=== PATIENT | male | born 1950 | race Caucasian/White ===

== ENCOUNTER 2019-01-17 20:30 | Inpatient (IN) | payer OTHER, MEDICAID ==
[~2019-01-17] VITALS: Ht 175.3 cm; Wt 66.3 kg
[2019-01-17 21:52] LABS: BASOPHIL % 0.1 % (0-2); RED CELL DISTRIBUTION WIDTH 13.7 % (11.5-14.5)
[2019-01-17 21:53] LABS: PLATELET COUNT 565 x10^3mcL (130-400)
[2019-01-17 22:04] LABS: CALCIUM 9.8 mg/dL (8.5-10.1); CARBON DIOXIDE 20.4 mmol/L (21-32); CREATININE SERUM 1.3 mg/dL (0.7-1.3); POTASSIUM SERUM 4.2 mmol/L (3.5-5.1)
[2019-01-17 22:09] LABS: BILIRUBIN TOTAL 0.42 mg/dL (0.20-1.00); TOTAL PROTEIN, SERUM 8.2 g/dL (6.4-8.2)
[2019-01-17 22:11] LABS: ALBUMIN 2.9 g/dL (3.4-5.0)
[2019-01-17] MEDS ORDERED: REG5 PO (23:46)
[2019-01-17] MEDS ORDERED: DIFLUCAN200 MG PO (23:46)
[2019-01-17] MEDS ORDERED: BENAZEPRIL HYDR20 M1 PO (23:47)
[2019-01-18] MEDS ORDERED: NEU300 PO (00:23)
[2019-01-18] MEDS ORDERED: GLUCOTROL5 MG PO (00:24)
[2019-01-18] MEDS ORDERED: GOOD SENSE OMEP20 MG PO (00:24)
[2019-01-18] MEDS ORDERED: METFORMIN HCL500 MG PO (00:24)
[2019-01-18] MEDS ORDERED: CRESTOR40 M1 PO (00:25)
[2019-01-18] MEDS ORDERED: TOUJEO MAX300 UNIT/1 (00:26)
[2019-01-18 01:18] VITALS: BP 171/64
[2019-01-18 01:29] LABS: MAGNESIUM 2.4 mg/dL (1.8-2.4); PHOSPHOROUS 2.3 mg/dL (2.5-4.9)
[2019-01-18 01:31] LABS: CHOLESTEROL/HDL RATIO 2.2
[2019-01-18 05:53] LABS: BASOPHIL % 0.1 % (0-2); RED CELL DISTRIBUTION WIDTH 12.9 % (11.5-14.5)
[2019-01-18 06:20] VITALS: BP 92/46
[2019-01-18 06:29] VITALS: BP 97/55
[2019-01-18 06:45] LABS: CALCIUM 9.1 mg/dL (8.5-10.1); CARBON DIOXIDE 23.6 mmol/L (21-32); CREATININE SERUM 1.4 mg/dL (0.7-1.3); POTASSIUM SERUM 4.2 mmol/L (3.5-5.1)
[2019-01-18 07:23] LABS: PLATELET COUNT 526 x10^3mcL (130-400)
[2019-01-18 09:34] VITALS: BP 147/73
[2019-01-18 20:43] VITALS: BP 108/55
[2019-01-19 00:43] LABS: microscopic required? YES; urine erythrocyte 1+ (NEGATIVE)
[2019-01-19 05:28] VITALS: BP 115/58
[2019-01-19 06:25] LABS: BASOPHIL % 0.6 % (0-2); RED CELL DISTRIBUTION WIDTH 13.6 % (11.5-14.5)
[2019-01-19 06:56] LABS: CALCIUM 8.8 mg/dL (8.5-10.1); CARBON DIOXIDE 26.1 mmol/L (21-32); CREATININE SERUM 1.9 mg/dL (0.7-1.3); MAGNESIUM 2.4 mg/dL (1.8-2.4); PHOSPHOROUS 2.8 mg/dL (2.5-4.9); POTASSIUM SERUM 3.5 mmol/L (3.5-5.1)
[2019-01-19 07:21] LABS: PLATELET COUNT 403 x10^3mcL (130-400)
[2019-01-19 09:43] VITALS: BP 134/65
[2019-01-19 13:07] VITALS: BP 151/58
[2019-01-19 17:39] VITALS: BP 120/72
[2019-01-19 22:09] VITALS: BP 97/46
[2019-01-20 05:39] VITALS: BP 100/50
[2019-01-20 06:08] LABS: BASOPHIL % 0.4 % (0-2); PLATELET COUNT 397 x10^3mcL (130-400)
[2019-01-20 06:21] LABS: CALCIUM 8.4 mg/dL (8.5-10.1); CARBON DIOXIDE 26.3 mmol/L (21-32); CREATININE SERUM 2.9 mg/dL (0.7-1.3); POTASSIUM SERUM 3.5 mmol/L (3.5-5.1)
[2019-01-20 09:00] VITALS: BP 104/51
[2019-01-20 13:02] VITALS: BP 109/52
[2019-01-20 17:18] VITALS: BP 111/50
[2019-01-20 21:11] VITALS: BP 121/64
[2019-01-21 05:40] VITALS: BP 90/47
[2019-01-21 06:49] LABS: CALCIUM 8.6 mg/dL (8.5-10.1); CARBON DIOXIDE 22.2 mmol/L (21-32); POTASSIUM SERUM 3.3 mmol/L (3.5-5.1)
[2019-01-21 06:51] LABS: BASOPHIL % 0.1 % (0-2); PLATELET COUNT 337 x10^3mcL (130-400); RED CELL DISTRIBUTION WIDTH 13.6 % (11.5-14.5)
[2019-01-21 06:58] LABS: CREATININE SERUM 4.5 mg/dL (0.7-1.3)
[2019-01-21 10:19] VITALS: BP 108/57
[2019-01-21 14:13] VITALS: BP 145/60
[2019-01-21 17:37] VITALS: BP 170/69
[2019-01-21 21:33] VITALS: BP 168/67
[2019-01-22 05:22] VITALS: BP 96/50
[2019-01-22 06:08] LABS: PLATELET COUNT 313 x10^3mcL (130-400); RED CELL DISTRIBUTION WIDTH 13.5 % (11.5-14.5)
[2019-01-22 06:36] LABS: CALCIUM 8.6 mg/dL (8.5-10.1); CARBON DIOXIDE 24.1 mmol/L (21-32)
[2019-01-22 06:58] LABS: CREATININE SERUM 5.6 mg/dL (0.7-1.3)
[2019-01-22 07:55] LABS: BASOPHIL % 0 % (0-2)
[2019-01-22 08:04] VITALS: Ht 175.3 cm; Wt 66.3 kg
[2019-01-22 09:15] VITALS: BP 133/59
[2019-01-22 13:58] VITALS: BP 158/58
[2019-01-22 17:10] VITALS: BP 158/55
[2019-01-22 20:41] VITALS: BP 152/42
[2019-01-23 05:04] VITALS: BP 105/49
[2019-01-23 07:41] LABS: BASOPHIL % 0.1 % (0-2); PLATELET COUNT 327 x10^3mcL (130-400); RED CELL DISTRIBUTION WIDTH 13.5 % (11.5-14.5)
[2019-01-23 08:06] LABS: CALCIUM 7.8 mg/dL (8.5-10.1); CARBON DIOXIDE 23.5 mmol/L (21-32); POTASSIUM SERUM 3.7 mmol/L (3.5-5.1)
[2019-01-23 08:13] LABS: CREATININE SERUM 5.7 mg/dL (0.7-1.3)
[2019-01-23 08:29] VITALS: BP 146/65
[2019-01-23 12:49] VITALS: BP 177/69
[2019-01-23 17:26] VITALS: BP 155/60
[2019-01-23 21:39] VITALS: BP 160/63
[2019-01-24 04:17] VITALS: BP 119/51
[2019-01-24 06:31] LABS: BASOPHIL % 0.3 % (0-2); PLATELET COUNT 309 x10^3mcL (130-400); RED CELL DISTRIBUTION WIDTH 14.1 % (11.5-14.5)
[2019-01-24 07:00] LABS: CALCIUM 7.8 mg/dL (8.5-10.1); CARBON DIOXIDE 21.8 mmol/L (21-32); POTASSIUM SERUM 4.4 mmol/L (3.5-5.1)
[2019-01-24 07:03] LABS: CREATININE SERUM 5.9 mg/dL (0.7-1.3)
[2019-01-24 08:46] VITALS: BP 153/65
[2019-01-24 12:34] VITALS: BP 151/61
[2019-01-24 16:57] VITALS: BP 153/54
[2019-01-24 21:42] VITALS: BP 161/63
[2019-01-25 05:43] VITALS: BP 145/62
[2019-01-25 07:09] LABS: BASOPHIL % 0.5 % (0-2); PLATELET COUNT 290 x10^3mcL (130-400); RED CELL DISTRIBUTION WIDTH 14.1 % (11.5-14.5)
[2019-01-25 07:30] LABS: CARBON DIOXIDE 24.7 mmol/L (21-32); MAGNESIUM 2.1 mg/dL (1.8-2.4); POTASSIUM SERUM 4.3 mmol/L (3.5-5.1)
[2019-01-25 07:44] LABS: CREATININE SERUM 5.5 mg/dL (0.7-1.3)
[2019-01-25 10:43] VITALS: BP 165/71
[2019-01-25 14:32] VITALS: BP 124/61
[2019-01-25 18:19] VITALS: BP 161/63
[2019-01-25 21:32] VITALS: BP 142/64
[2019-01-26 05:35] VITALS: BP 146/64
[2019-01-26 07:13] LABS: BASOPHIL % 0.7 % (0-2); PLATELET COUNT 280 x10^3mcL (130-400); RED CELL DISTRIBUTION WIDTH 13.8 % (11.5-14.5)
[2019-01-26 07:22] LABS: CALCIUM 8.1 mg/dL (8.5-10.1); CARBON DIOXIDE 25.9 mmol/L (21-32); POTASSIUM SERUM 4.3 mmol/L (3.5-5.1)
[2019-01-26 07:42] LABS: CREATININE SERUM 5.2 mg/dL (0.7-1.3)
[2019-01-26 10:18] VITALS: BP 137/67
[2019-01-26 12:05] VITALS: BP 165/69
[2019-01-26 19:21] VITALS: BP 165/69
[2019-01-26] MEDS ORDERED: NOR5 PO (19:39)
[2019-01-26] MEDS ORDERED: LAC PO (19:40)
[2019-01-26] MEDS ORDERED: NOVAPLUS ZYVO2 MG/ML IV (19:45)
== END 2019-01-26 20:00 | DRG 871 ==
LOC: ED 20:30 → DU 23:41 → MU 23:41 → DU 01-18 00:58
PROVIDERS: Emergency Medicine; General Practice; Internal Medicine; ADMIT Internal Medicine
DX: A41.9 Sepsis, unspecified organism (principal); N17.0 Acute kidney failure with tubular necrosis; E43 Unspecified severe protein-calorie malnutrition; E11.52 Type 2 diabetes mellitus with diabetic peripheral angiopathy with gangrene; I96 Gangrene, not elsewhere classified; L03.115 Cellulitis of right lower limb; D68.69 Other thrombophilia; L97.421 Non-pressure chronic ulcer of left heel and midfoot limited to breakdown of skin; E11.43 Type 2 diabetes mellitus with diabetic autonomic (poly)neuropathy; I12.9 Hypertensive chronic kidney disease with stage 1 through stage 4 chronic kidney disease, or unspecified chronic kidney disease; N18.3 Chronic kidney disease, stage 3 (moderate); E11.621 Type 2 diabetes mellitus with foot ulcer; L97.521 Non-pressure chronic ulcer of other part of left foot limited to breakdown of skin; E11.22 Type 2 diabetes mellitus with diabetic chronic kidney disease; E11.65 Type 2 diabetes mellitus with hyperglycemia; K31.84 Gastroparesis; E83.39 Other disorders of phosphorus metabolism; L03.031 Cellulitis of right toe; I16.0 Hypertensive urgency; Z99.3 Dependence on wheelchair; Z79.4 Long term (current) use of insulin; Z68.21 Body mass index [BMI] 21.0-21.9, adult; Z87.891 Personal history of nicotine dependence; Z79.84 Long term (current) use of oral hypoglycemic drugs; Z91.19 Patient's noncompliance with other medical treatment and regimen
CPT/HCPCS: 82962; 97110-GP; 97112-GP; 97530-GP; C9113; J0295; J1644; J1815; J2020; J2270; J2405; J2543; J2765; J3370; J3490; J7030; J7042; J8597; Q0092

== ENCOUNTER 2019-04-27 08:44 | Inpatient (IN) | payer OTHER, MEDICAID ==
[~2019-04-27] VITALS: Ht 180.3 cm; Wt 63.0 kg
[~2019-04-27 08:44] MED LIST: BENAZEPRIL HYDR20 M1 PO; CRESTOR40 M1 PO; DIFLUCAN200 MG PO; GLUCOTROL5 MG PO; GOOD SENSE OMEP20 MG PO; LAC PO; METFORMIN HCL500 MG PO; NEU300 PO; NOR5 PO; NOVAPLUS ZYVO2 MG/ML IV; REG5 PO; TOUJEO MAX300 UNIT/1
--- NOTE | 2019-04-27 08:52 | NUR ---
PT BIBA FOR CONFUSION SINCE THIS AM. PARAMEDICS REPORT PT'S BS IN TRANSPORT TO BE 57. PT WAS GIVEN D10 IV BY PARAMEDICS AND BECAME MORE ALERT. PARAMEDICS REPORT ULCERS TO BILATERAL FEET WITH PROFUSE SMELL. PT IS AAOX3. 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 PT ABLE TO FOLLOW COMMANDS. PER , PT HAS NOT HAD SENSATION BELOW HIS KNEES X4 YEARS. PT ON FULL CM. PT IS HYPOTENSIVE ON MONITOR. MSE COMPLETED BY DR SWEET
--- NOTE | 2019-04-27 09:08 | NUR ---
DR SWEET AT BEDSIDE FOR MSE
[2019-04-27 09:46] LABS: CALCIUM 8.4 mg/dL (8.5-10.1); CARBON DIOXIDE 13.9 mmol/L (21-32); CREATININE SERUM 3.7 mg/dL (0.7-1.3); PLATELET COUNT 471 x10^3mcL (130-400); POTASSIUM SERUM 4.8 mmol/L (3.5-5.1); RED CELL DISTRIBUTION WIDTH 16.8 % (11.5-14.5)
[2019-04-27 09:51] LABS: BILIRUBIN TOTAL 0.21 mg/dL (0.20-1.00); TOTAL PROTEIN, SERUM 6.2 g/dL (6.4-8.2)
[2019-04-27 09:52] LABS: ALBUMIN 1.5 g/dL (3.4-5.0)
[2019-04-27 09:56] LABS: BAND NEUTROPHIL 1 % (0-10); BASOPHIL 0 % (0-2); MONOCYTE 1 % (0-7); SEGMENTED NEUTROPHILS 96 % (37-75)
[2019-04-27 09:57] LABS: PLATELET MORPHOLOGY PLATELETS INCREASED
[2019-04-27 09:58] LABS: rbc morphology (normal/abnorm) ABNORMAL (NORMAL)
[2019-04-27 09:59] LABS: acanthocyte (spur cell) 2+
[2019-04-27 10:11] LABS: microscopic required? NO
--- NOTE | 2019-04-27 10:58 | NUR ---
PT MEDICATED PER DOCTORS ORDERS. PT'S BLOOD PRESSURE STILL BELOW 90 SYSTOLIC, 2.5 LITERS OF NS RUNNING A BOLUS AT THIS TIME. WILL CONTINUE TO MONITOR CLOSELY.
--- NOTE | 2019-04-27 11:31 | NUR ---
PT'S BLOOD PRESSURE NOT RISING WITH BOLUS RUNNING. DR SWEET NOTIFIED.
[2019-04-27 11:34] LABS: UA SPECIFIC GRAVITY 1.025 (1.005-1.035); urine erythrocyte NEGATIVE (NEGATIVE)
--- NOTE | 2019-04-27 11:41 | NUR ---
REPORT RECEIVED FROM IRMA STRONG
--- NOTE | 2019-04-27 11:46 | NUR ---
PT'S SIGNED CONSENT FOR CENTRAL LINE PROCEDURE. IN CHART
--- NOTE | 2019-04-27 11:54 | NUR ---
MD SWEET AT BEDSIDE FOR CENTRAL LINE PT STILL ALERT AND RESPONSIVE TO DIRECTIONS
--- NOTE | 2019-04-27 12:25 | NUR ---
PT TOLERATED CENTRAL LINE WELL. LEVOPHED STARTED. PT DENIES PAIN AT THIS TIME
--- NOTE | 2019-04-27 12:28 | NUR ---
PT HAS UNPALPABLE PULSES TO BL FEET. PODIATRY RESIDENT Yvrose VELASQUEZ MADE AWARE
--- NOTE | 2019-04-27 12:43 | NUR ---
LEVO TITRATED TO 4MCG/MIN 15ML/HR
--- NOTE | 2019-04-27 12:47 | NUR ---
X RAY AT BEDSIDE
--- NOTE | 2019-04-27 13:00 | NUR ---
PT HAD ONE EPISODE OF WATERY STOOL. PT CLEANED AND CHANGED. NON BLANCHABLE AREA AND SKIN BREAK DOWN NOTED TO THE CREASE OF THE BUTTOCKS
--- NOTE | 2019-04-27 13:09 | NUR ---
PT PROVIDED MEAL TRAY. HELPING PT EAT MEAL
--- NOTE | 2019-04-27 13:10 | NUR ---
PER MD SWEET, KEEP PT AT 4MCG/MIN OF LEVOPHED EVEN WITH LAST VITALS ( SEE VITALS). WAIT 1 HOUR AND SEE HOW PT IS TOLERATING AND WILL ADJUST ACCORDINGLY
--- NOTE | 2019-04-27 13:23 | NUR ---
PT IS ABLE TO MOVE POSITIONS AND LAY ON DIFFERENT SIDES ON HIS OWN. PT IS CURRENTLY SITTING UP IN BED EATING LUNCH
--- NOTE | 2019-04-27 13:37 | NUR ---
PT ATE APPROX 25% OF MEAL PROVIDED
--- NOTE | 2019-04-27 13:48 | NUR ---
RESIDENTS AT BEDSIDE FOR I& D
--- NOTE | 2019-04-27 14:25 | NUR ---
Seth PITTS THE WRAPPER HAND AT BEDSIDE DISCUSSING PLAN OF CARE WITH PT
--- NOTE | 2019-04-27 14:27 | NUR ---
PT HAS UNPALPABLE PULSES TO BL FEET. PODIATRY RESIDENT Yvrose VELASQUEZ MADE AWARE
--- NOTE | 2019-04-27 14:28 | NUR ---
RESIDENT Yvrose, EVA AT BEDSIDE FOR I &D OF PT WOUND. PT TOLERATING WITHOUT PAIN AND WITHOUT ANY PAIN MEDICATION. PT SEEN RESTING COMFORTABLE WITH EQUAL AND UNLABORED CHEST RISE. NAD AT THIS TIME
--- NOTE | 2019-04-27 15:28 | NUR ---
X RAY AT BEDSIDE
--- NOTE | 2019-04-27 15:51 | NUR ---
PER MD SWEET THERE IS NO ACCEPTING ORTHOPEDIC SURGEON. SO THE PLAN NOW IS TO TRY TO FIND AN ACCEPTING SURGEON AND TRANSFER PT OUT.
--- NOTE | 2019-04-27 15:56 | NUR ---
PAGED RESIDENT EVA FOR WOUND CULTURE ORDER
--- NOTE | 2019-04-27 16:00 | NUR ---
MD SWEET STATES CENTRAL LINE PLACEMENT HAD BEEN CONFIRMED
--- NOTE | 2019-04-27 16:10 | NUR ---
FAMILY AT BEDSIDE IMPLEMENTING CONTACT RECAUTIONS
--- NOTE | 2019-04-27 16:20 | NUR ---
NOW NPO PER DR SWEET.
--- NOTE | 2019-04-27 16:57 | NUR ---
PER MD SWEET. DO NOT ALLOW THE PT TO EAT DUE TO UNABLE TO FIND ACCEPTING DR AT THIS TIME AND THE POSSIBILITY OF EMERGENCY SURGERY.
--- NOTE | 2019-04-27 16:58 | NUR ---
LAST KNOWN MEAL AT 1330
[2019-04-27 17:13] LABS: RED CELL DISTRIBUTION WIDTH 16.1 % (11.5-14.5)
[2019-04-27 17:17] LABS: CALCIUM 7.6 mg/dL (8.5-10.1); CARBON DIOXIDE 12.3 mmol/L (21-32)
--- NOTE | 2019-04-27 17:18 | NUR ---
PER DO SANTA SHE WILL ACCEPT PT AND PUT IN ADMIT ORDERS. WAITING FOR ORDERS TO BE PUT IN.
--- NOTE | 2019-04-27 17:20 | NUR ---
DR FONSECA AND SURGICAL DO SANTA AT BEDSIDE TO DISCUSS PLAN OF CARE WITH PT
[2019-04-27 17:21] LABS: BAND NEUTROPHIL 3 % (0-10); MONOCYTE 2 % (0-7); SEGMENTED NEUTROPHILS 94 % (37-75)
--- NOTE | 2019-04-27 17:22 | NUR ---
CALLED BLOOD BANK AND THEY STATE BLOOD WILL BE READY IN 30 MINUTES
[2019-04-27 17:28] LABS: PLATELET MORPHOLOGY PLATELETS INCREASED; acanthocyte (spur cell) 1+; rbc morphology (normal/abnorm) ABNORMAL (NORMAL)
[2019-04-27 17:31] LABS: PLATELET COUNT 603 x10^3mcL (130-400)
--- NOTE | 2019-04-27 17:53 | NUR ---
SURGERY DO KIET STATED TO DRAW WITH SURGICAL PEN ON PTS FEET WHERE THERE WAS REDNESS SURGICAL LINES DRAWN ON LEFT FOOT WHERE THERE WAS REDNESS NO REDNESS NOTED ON THE R FOOT
--- NOTE | 2019-04-27 17:54 | NUR ---
ERT PAVAN AND KELBY AT BEDSIDE TO RECOVER WOUNDS AFTER SURGICAL LINES DRAWN
--- NOTE | 2019-04-27 17:59 | NUR ---
CALLED BLOOD BANK BLOOD BANK STATES BLOOD IS NOT READY AND "THEY WILL CALL ME WHEN ITS READY "
--- NOTE | 2019-04-27 18:10 | NUR ---
PER DO SANTA SHE STATES TO GIVE A TOTAL OF 2 UNITS PRBS - SHE ORDERED 2 UNITS AND MD SWEET ORDERED 1 UNIT- SHE STATES "JUST GIVE TWO TOTAL". DO SANTA ALSO STATES TO KEEP PT NPO EXCEPT MEDS WITH SMALL SIPS OF WATER. "IF IT SAYS GIVE WITH MEALS OR BEFORE MEALS, THEN HOLD OFF AND DO NOT GIVE IT". DO KIET TRYING TO CHANGE FLAGYL ORDER TO "NOW" RATHER THAN THE SET HOURS Q8H. SHE CALLED PHARMACY AND THEY STATE THEY WILL CHANGE IT
--- NOTE | 2019-04-27 18:15 | NUR ---
CALLED PHARMACY FOR ICU HOLD MEDICTIONS GABAPENTIN AND FLAGYL AND THEY STATE THEY WILL BRING THEM
--- NOTE | 2019-04-27 18:34 | NUR ---
PER MD SAAVEDRA OKAY TO GIVE BLOOD EVEN WITH RECENT TEMPERATURE INCREASE SEE VITALS
--- NOTE | 2019-04-27 19:02 | NUR ---
AWAITING MEDICATION CAM AND NEURONVERO FROM PHARMACY
--- NOTE | 2019-04-27 19:21 | NUR ---
REPORT CALLED TO CATALINO TOOL DESIGN DRAFTSPERSON
--- NOTE | 2019-04-27 19:33 | NUR ---
REPORT RECIEVED FROM ER NURSE AWAITING PT TRANSFER.
--- NOTE | 2019-04-27 19:33 | NUR ---
BLOOD CHANGED TO RATE OF 150ML/HR
--- NOTE | 2019-04-27 19:45 | NUR ---
PT TRANSFERRED TO ICU BED 7 BY [facility] BY CLIVE STRONG AND [facility] EMT. PT ON FULL CM FOR TRANSPORT PT AOX4, RESP EVEN AND UNLABORED, NO ACUTE DISTRESS NOTED. PT ACCEPTED BY CATALINO STRONG TO ASSUME PT CARE. PT TRANSFERRED FROM [facility] TO BED WITHOUT INCIDENT.
--- NOTE | 2019-04-27 20:00 | NUR ---
PT CAME FROM ED. NO ACUTE DISTESS. RESUMED CARE OF PT PLACE IN ICU BED 7. PT A&OX4. BERATHING E/U. LUNG SOUNDS CLEAR KODAK UPPER LOBES AND DIM BLL. CARD NSR, SKIN TO COCCYX, BLE BOTH W/ BLE. GI NO OGT. RIJ C/D/I. NS@ 150ML/HR. PRBC @ 100ML/HR. CONTACT FOR MRSA POSSIBLE FOR C. DIFF.
--- NOTE | 2019-04-27 21:31 | NUR ---
DR COTO @ BEDSIDE. NURSING UPDATES. NEW ORDERS INITIATED.
[2019-04-27 22:16] VITALS: BP 128/62
--- NOTE | 2019-04-27 23:29 | NUR ---
PT GIVEN 650M ACETAMINAPHEN FOR TEMP 100.6. WILL CONT TO MONITOR. NO OTHER S/S OF DISTRESS. HR NORMAIL, BP NORMAL.
--- NOTE | 2019-04-28 00:04 | NUR ---
[id number] STATES THEY'RE STILL BUSY WITH ER PATIENTS,WILL LET US KNOW WHEN THEY CAN COME TO DO PATIENT.
--- NOTE | 2019-04-28 00:06 | NUR ---
@ 2300 FIRST UNIT OF PRBC FINISHED W/ NO S/S OF BLOOD TRANSFUSION REACTION. PT VITALS WNL. WILL ATTAINED NEXT PRBC BAG.
[2019-04-28 00:16] VITALS: BP 111/58
[2019-04-28 05:34] LABS: BASOPHIL % 0 % (0-2); PLATELET COUNT 469 x10^3mcL (130-400); RED CELL DISTRIBUTION WIDTH 17.7 % (11.5-14.5)
--- NOTE | 2019-04-28 05:41 | NUR ---
NOTIFIED BY LAB WBCS 24.7.
[2019-04-28 05:58] LABS: CALCIUM 7.7 mg/dL (8.5-10.1); CARBON DIOXIDE 11.1 mmol/L (21-32); CREATININE SERUM 2.4 mg/dL (0.7-1.3); POTASSIUM SERUM 4.6 mmol/L (3.5-5.1)
--- NOTE | 2019-04-28 07:25 | NUR ---
REPORT GIVEN TO LIGIA GERARD. ALL CONCERNS ADDRESSED. RELEASED FROM CARE OF PT.
[2019-04-28 08:00] VITALS: BP 155/66
--- NOTE | 2019-04-28 08:00 | NUR ---
INITIAL SHIFT ASSESSMENT DONE (SEE ASSESSMENT PART). AAOX3. NO C/O PAIN OR DYSPNEA. O2 SAT 95-97% ON ROOM AIR. SR ON MONITOR. SBP IN 150'S-160'S. LEVOPHED DRIP DECREASE TO 8 MCG/MIN. NO ECTOY NOTED. HOB ELEVATED. UPDATED OF PLAN OF CARE. WILL CONTINUE TO MONITOR.
--- NOTE | 2019-04-28 08:30 | NUR ---
SBP IN 150. AUTOMOTIVE DESIGN DRAFTER KARINA DECREASE THE LEVOPHED DRIP TO 5 MCG/MIN. WILL CONTINUE TO MONITOR.
--- NOTE | 2019-04-28 09:00 | NUR ---
SBP IN 140'S-150. SUPERVISOR STONE KARINA TURN OFF THE LEVOPHED DRIP. WILL CONTINUE TO MONITOR.
--- NOTE | 2019-04-28 09:15 | NUR ---
DUMP GRADER IS IN THE ROOM CHECKING THE WOUND ON LEFT FOOT. SUPERVISOR PIPE FINISHING SUNIL CHANGE THE DRESSING. TOLERATED THE PROCEDURE WELL.
--- NOTE | 2019-04-28 09:30 | NUR ---
STOOL IS SEND TO THE LAB TO CHECK FOR C. DIFF PER MD ORDER.
--- NOTE | 2019-04-28 10:00 | NUR ---
RESTING IN BED. NO C/O PAIN OR DYSPNEA. O2 SAT 96-97% ON ROOM AIR. SR ON MONITOR. SBP IN 90'S-120'S. NO ECTOPY NOTED. HOB ELEVATED. WILL CONTINUE TO MONITOR.
--- NOTE | 2019-04-28 11:50 | NUR ---
MELISA SYLVESTER, PATIENT'S FAMILY AT BEDSIDE FOR FAMILY MEETING. MELISA DISCUSSED WITH PATIENT AND FAMILY THE NEED OF PATIENT TO HAVE AMPUTATION OF LEFT FOOT. MELISA DISCUSSED POTENTIAL RISKS INCLUDING WITH PATIENT AND FAMILY BUT AGAIN REFUSING AT THIS TIME. FAMILY CONTINUES AT BEDSIDE TO DISCUSS IMPLICATIONS WITH PATIENT AT THIS TIME.
[2019-04-28 12:00] VITALS: BP 122/58
--- NOTE | 2019-04-28 12:00 | NUR ---
REASSESSMENT DONE. AAOX3. NO C/O PAIN OR DYSPNEA. O2 SAT 96-98% ON ROOM AIR. SR ON MONITOR. SBP IN 90'S-110'S. NO ECTOPY NOTED. HOB ELEVATED. DAUGHTER AT BEDSIDE. UPDATED OF STATUS AND PLAN OF CARE. WILL CONTINUE TO MONITOR.
--- NOTE | 2019-04-28 12:30 | NUR ---
FLEXISEAL IS LEAKING AROUND THE ANAL ORIFICE, LARGE AMOUNT, LIQUID, GREENISH BROWN COLOR. GIVEN BATH AND LINENS ARE CHANGE. TOLERATED THE PROCEDURE WELL.
--- NOTE | 2019-04-28 12:40 | NUR ---
PATIENT'S PERSONAL BLANKETS SOILED. BLANKETS GIVEN TO PATIENT'S DAUGHTER TO LAUNDER AT HOME.
--- NOTE | 2019-04-28 14:30 | NUR ---
REPORT GIVEN TO 2ND FLOOR CURING MACHINE OPERATOR, LIGIA FERGUSON.
--- NOTE | 2019-04-28 14:50 | NUR ---
TRANSFER TO TELEMETRY ROOM 225-B BY BED WITH PORTABLE COIL WINDER. ACCOMPANIED BY TRANSPORTER SAMY.
[2019-04-28 15:05] VITALS: BP 105/45
--- NOTE | 2019-04-28 15:06 | NUR ---
[facility] ORIENTED PT TO ROOM AND SURROUNDINGS. NO REPORTS OF CP OR SOB, NO REPORTS OF PAIN. VSS, BP 105/45, MAP 71, HR 71, TEMP 99.1, 02 SAT 98% RA. INSTRUCTED PT ON THE USE OF CALL LIGHT FOR ASSISTANCE. ENDORSED TO PRIMARY NURSE PHYLLIS
--- NOTE | 2019-04-28 15:30 | NUR ---
RECEIVED PT. FROM LIGIA COSTA. PT. CAME FROM ICU DEPT. PT. A/A/O X2 (PERSON AND TIME). PT. DOES NOT KNOW WHERE HE IS AT THIS TIME. NO SOB, NO N/V NOTED. PT. DENIES ANY PAIN AT THIS TIME. MULTIPLE GANGRENEOUS AREAS NOTED TO KODAK. FEET INCLUDING KODAK. HEELS. CHRISTIANO WRAP NOTED TO L FOOT CDI. CO-BAND DRESSING NOTED TO R FOOT CDI. ERYTHEMA NOTED TO COCCYX, KODAK. GROINS, AND SCROTUM (PHOTOGRAPHS TAKEN). TRACE EDEMA NOTED TO BLE. IVF NS RESUMED AT 75 CC/HR VIA TLC CATH. AT R NECK. IV SITE #1 NOTED TO R AC. IV SITE #2 NOTED TO L UPPER ARM. F/C DRAINING ROSA URINE. FLEXISEAL IN PLACE DRAINING WATERY, GREENISH STOOL. L HEEL PROTECTOR IN PLACE. BED IN LOW POS., CALL LIGHT WITHIN REACH. SIDE RAILS UP X3. Z-GUARD SKIN PASTE APPLIED TO KODAK. GROINS AND COCCYX. OPTIFOAM DRESSING APPLIED TO COCCYX. WILL CONTINUE TO MONITOR.
--- NOTE | 2019-04-28 19:15 | NUR ---
FLUSHED EACH LUMEN OF TLC CATH. TO R NECK WITH 5CC NS PER PROTOCOL. ALL 3 PORTS FLUSHED WELL. FAMILY AT BEDSIDE.
--- NOTE | 2019-04-28 19:15 | NUR ---
RECEIVED PT FROM DAY SHIFT RN. PT IS AA&O X4 AND ABLE TO FOLLOW COMMANDS. PT IS ISRAELI SPEAKING AND HAS FAMILY AT THE BEDSIDE. THERE ARE NO SIGNS AND SYMPTOMS OF CHEST PAIN OR SHORTNESS OF BREATH ON ASSESSMENT. THERE ARE NO USE OF ACCESSORY MUSCLES OR LABORED BREATHING ON ASSESSMENT. RECTAL TUBE IS IN PLACE. KAMARA CATHETER IS IN PLACE. TELE MONITOR IS IN PLACE. CENTRAL LINE NOTED TO THE RIGHT UPPER CHEST. CLEAN DRY AND INTACT. SAFETY MEASURES ARE IN PLACE. CALL LIGHT IS WITHIN REACH. WILL CONTINUE TO MONITOR.
--- NOTE | 2019-04-28 20:57 | NUR ---
INFORMED DR MAYORGA OF PATIENTS LOW BLOOD PRESSURE. DR MAYORGA PUT IN ORDERS FOR 250ML/HR BOLUS. STARTED BOLUS. WILL CONTINUE TO MONITOR AND RECHECK BP AFTER BOLUS.
[2019-04-28 21:52] VITALS: BP 105/49
--- NOTE | 2019-04-28 21:56 | NUR ---
BP: 105/49 MAP 72 RECHECK.
[2019-04-28 21:58] VITALS: BP 105/49
--- NOTE | 2019-04-28 22:00 | NUR ---
DR MAYORGA MADE AWARE OF NEW BP OF 105/49 MAP 72. NO NEW ORDERS AT THIS TIME.
--- NOTE | 2019-04-29 00:34 | NUR ---
PT RESTING IN BED. DENIES CHEST PAIN OR SHORTNESS OF BREATH AT THIS TIME. RECTAL TUBE IN PLACE AND KAMARA CATHETER IN PLACE. PT TOLERATING WELL. PT TOLERATING ANTIBIOTIC THERAPY. THERE ARE NO USE OF ACCESSORY MUSCLES OR LABORED BREATHING ON ASSESSMENT. WILL CONTINUE TO MONITOR.
[2019-04-29 04:23] VITALS: BP 118/41
--- NOTE | 2019-04-29 05:15 | NUR ---
PT SLEPT THROUGHOUT THE NIGHT. NO SIGNS OR SYMPTOMS OF CHEST PAIN OR SHORTNESS OF BREATH. THERE ARE NO USE OF ACCESSORY MUSCLES OR LABORED BREATHING ON ASSESSMENT. NO SIGNIFICANT CHANGES NOTED. SAFETY MEASURES ARE IN PLACE. CALL LIGHT IS WITHIN REACH. WILL ENDORSE TO DAY SHIFT RN.
--- NOTE | 2019-04-29 05:30 | NUR ---
SPOKE WITH PHARMACY REGARDING VANCOMYCIN CAPSULES NOT BEING AVAILABLE. TOLD TO CALL MAIN PHARMACY AT 7 AM. CANNOT ADMINISTER AT SCHEDULED TIME
[2019-04-29 06:31] LABS: CALCIUM 8.2 mg/dL (8.5-10.1); CARBON DIOXIDE 11.3 mmol/L (21-32); CREATININE SERUM 1.7 mg/dL (0.7-1.3); POTASSIUM SERUM 4.2 mmol/L (3.5-5.1)
--- NOTE | 2019-04-29 07:45 | NUR ---
ALERT AND ABLE TO COMMUNICATE NEEDS. BREATHING FREELY ON RA. DENIES ANY PAIN. CONTACT ISOLATION FOR C-DIFF. PT PULLED OUT RECTAL TUBE SOILING LINENS AND SELF. REFUSES TO HAVE ANOTHER RECTAL TUBE INSERTED. NS TO RT IJ INFUSING 75 CC HOUR. ALL 3 PORTS PATENT. IV TO LEFT FA PATENT. APPEARS THIN. DRESSING AND BOOT TO LEFT LOWER LEG CDI. WOUND TO RT FOOT INTACT. FOOT IS PURPLISH WITH BLACKENED 5TH TOE. CALL LIGHT WITHIN REACH.
--- NOTE | 2019-04-29 08:13 | NUR ---
PT PULLED OUT RECTAL TUBE. STOOL REMAINS VERY WATERY AND HE DOES NOT WANT IT REINSERTED. RECTAL BAG HAD 400 CC IN IT AND DURING LINEN CHANGE PT HAD ANOTHER WATERY STOOL.
[2019-04-29 08:22] VITALS: BP 123/59
[2019-04-29 08:28] LABS: BASOPHIL % 0 % (0-2); PLATELET COUNT 412 x10^3mcL (130-400); RED CELL DISTRIBUTION WIDTH 18.3 % (11.5-14.5)
[2019-04-29 11:51] VITALS: BP 120/61
[2019-04-29 15:47] VITALS: BP 117/58
--- NOTE | 2019-04-29 19:20 | NUR ---
PT RECEIVED A/O X4, WITH EPISODES OF FORGETFULNESS, MALAWIAN SPEAKING. FAMILY AT BEDSIDE. TELE #2, DENIES ANY CP/PRESSURE. WEAK PEDAL PULSES, TRACE EDEMA TO BLE. BREATHING IS EVEN AND UNLABORED ON RA, DENIES SOB, NO RESP DISTRESS NOTED. ABD SOFT AND NONDISTENDED, DENIES N/V. CONTACT PRECAUTIONS IN PLACE FOR CDIFF(+) AND MRSA NARES(+). PER AM NURSE, PT REFUSING RECTAL TUBE AND PULLED IT OUT DURING AM SHIFT. KAMARA CATH SECURED AND IN PLACE, DRAINING ROSA URINE. GENERALIZED WEAKNESS. ERYTHEMA TO GROIN AND COCCYX, SAKINA; MULTIPLE WOUNDS TO BLE, DRSG IN PLACE, CDI. PT DENIES HAVING ANY PAIN AT THIS TIME. SL TO KATHERINE AND RAC, PATENT AND INTACT, SITES FREE FROM REDNESS OR SWELLING. RIJ IN PLACE, ALL PORTS PATENT AND INTACT, FLUSHED AND NOTED WITH GOOD BLOOD DRAW, DRSG CDI, SITE WNL. BED IN LOWEST SETTING, SIDE RAILS UP X2, BED ALARM ON, CALL LIGHT WITHIN REACH. WILL CONT TO MONITOR.
--- NOTE | 2019-04-29 19:56 | NUR ---
RESTING COMFORTABLY AND QUIETLY WITH FAMILY AT BEDSIDE. REFUSED DINNER. NPO AFTER MIDNIGHT FOR SURGERY TOMORROW. CONSENT SIGNED. REMAINS ON CONTACT ISOLATION FOR MRSA TO NARES AND CDIFF. PRESCHOOL TEACHER'S ASSISTANT INFOMRED OF MRSA (+) NARES. VSS. CONTINUES ON VANCO,FLAGYL AND ZOSYN. AFEBRILE.
[2019-04-29 21:34] VITALS: BP 102/47
--- NOTE | 2019-04-30 00:12 | NUR ---
PT RESTING IN BED WITH EYES CLOSED, BUT IS EASILY AROUSABLE. BREATHING IS EVEN AND UNLABORED, NO RESP DISTRESS NOTED. PT NPO AT THIS TIME FOR PROCEDURE. PT DENIES HAVING ANY PAIN AT THIS TIME. IVF INFUSING WELL TO [facility], SITE WNL. NO ACUTE DISTRESS NOTED. BED ALARM ON, CALL LIGHT WITHIN REACH. WILL CONT TO MONITOR.
[2019-04-30 05:32] VITALS: BP 110/53
[2019-04-30 06:36] LABS: CALCIUM 8.6 mg/dL (8.5-10.1); CARBON DIOXIDE 12.3 mmol/L (21-32); CREATININE SERUM 1.4 mg/dL (0.7-1.3); MAGNESIUM 1.9 mg/dL (1.8-2.4); POTASSIUM SERUM 3.9 mmol/L (3.5-5.1)
[2019-04-30 07:31] LABS: BASOPHIL % 0 % (0-2); PLATELET COUNT 425 x10^3mcL (130-400); RED CELL DISTRIBUTION WIDTH 17.1 % (11.5-14.5)
--- NOTE | 2019-04-30 07:39 | NUR ---
PT SLEPT WELL THROUGHOUT THE EVENING. BREATHING IS EVEN AND UNLABORED, NO RESP DISTRESS NOTED. PT DENIES ANY PAIN AT THIS TIME. DRESSING TO RT FOOT CHANGED, GAUZE WRAP AND CHRISTIANO WRAP APPLIED, FOUL ODOR NOTED, NO DRAINAGE OBSERVED. PT REMAINS NPO FOR PROCEDURE TODAY, NPO SIGN POSTED. RIJ INTACT, ALL PORTS PATENT, DRSG CDI, SITE WNL. SL TO KATHERINE AND RAC, PATENT AND INTACT, SITE WNL. NO ACUTE CHANGES ENCOUNTERED DURING SHIFT. ALL NEEDS MET. CALL LIGHT WITHIN REACH. CONTINUITY OF CARE ENDORSED TO AM NURSE. ALL QUESTIONS AND CONCERNS ADDRESSED.
[2019-04-30 10:04] VITALS: BP 118/53
[2019-04-30 11:46] VITALS: Ht 180.3 cm; Wt 63.0 kg
[2019-04-30 12:10] VITALS: BP 129/48
--- NOTE | 2019-04-30 14:56 | NUR ---
Initial Nutrition Assessment: Jimmy Carmona [place] Rm 225B Dx: Sepsis PMHx: DM2, Osteomyelitis, CKD, HDL, HTN, Anemia PSHx: None noted. Labs: (04/30) Cl 111H, Co2 12.3L, Glucos. 141H, BUN 30.0H, Creat. 1.4H, WBC 14.6H, Hgb 8.9L, Hct 28L Meds: Dextrose 10%, Glucotrol, Humulin, Lactinex, Pepcid, Precision PCX Blood Glucose Strips, Zofran, Zosyn Diet: NPO (sugery 04/30) PO Intake: (04/29) CCHO B-50%, L-60%, D- 90% Ht: 180cm, 70in Wt: 63kg, 138# BMI: 19.4kg/m2 (Normal) Bed scale: 130#, 59kg IBW: 75kg, 165# %IBW: 83% UBW: 149# Age: 68/M Food Allergies: NKA Skin: Noted possible necroting fascititis. Open wounds w/wound debridment done. Elvis: 14 Edema: None noted GI: Last BM: 04/30/19 Per H&P : This is a 68-year old Wallisian speaking only male who was seen and examined in the ER. Accompanied by and daughter at bedside. According to daughter at bedside patient was altered this morning, 911 was called, when EMS arrived patients glucose level 57 and was given a D10 bolus, and still no improvement with mental status. Patient was recently discharged from this hospital of January 26, 2019 for right diabetic foot infection and epigastric pain, and was seen by podiatry and vascular surgeon, patient treated with ivabx of vancomycin. When patient arrived in the ER patients WBC 30,000 and sepsis protocol initiated patient given vanco/zosyn and 2L bolus of NS. Upon examining patient in the ER he is awake, and alert weak noted with be hypotensive with a systolic pressure in the low 70's, despite of receiving boluses no improvement of the systolic pressure. Patient bilateral foot noted with foul smell and pustule drainage. Patients mentioned that patient has a history of anemia and if he is to undergo any surgical procedure he is to get blood transfusion. Due patient being hypotensive, patient will be admitted to the ICU for close monitoring. Pt Visit: Pt was able to answer a few questions and his daughter Anival helped answer the other questions. His daughter stated he had a little diarrhea yesterday and pt said he doesn't have much of an appetite. He said he has had DM2 for over 20 years but never really ate a low carb diet. Went over CKD diet for his kidneys and encouraged low sodium and carbohydrates. Pt said he has not been able to exercise since his wounds hurt his feet. Problem with: N: No V: No D: Yes, yesterday C: No Problems with: Chewing: None Swallowing: None Current appetite: Poor Recent wt change: None %wt change: None Vitamin/Supplement use: None Special diet at home: None Physical activity: None Nutrition education given: [facility] CKD Wallisian packet given out to pt's daughter Anival Food-drug interactions: None at this time. Education given: N/A Estimated Nutritional Needs Based on actual body weight 63kg Energy:1890-2000kcal/kg (30-35kcal/kg) (CKD) Protein: 38-50g/d (0.6-0.8g.kg) (CKD no dialysis) Fluid: per doctor Nutrition Diagnosis: 1. Increased energy expenditure r/t sepsis aeb BUN 30 and Creatanine 1.4 Intervention 1. CCHO and Renal diet, 50g of protein, once medically appropriate 2. CKD education given Monitor/Evaluate Goal: PO intake at least 75% of estimated needs Monitor: PO intake, Labs, GI function, tolerance of diet MR F/U 05/03-05/05
--- NOTE | 2019-04-30 14:57 | NUR ---
Intervention 1. CCHO and Renal diet, 50g of protein, once medically appropriate 2. CKD education given
[2019-04-30 17:29] VITALS: BP 124/58
--- NOTE | 2019-04-30 17:53 | NUR ---
KAMARA CARE PROVIDED. WHITISH DRAINAGE NOTED COMING FROM TIP OF PENIS. CENTRAL LINE CARE GIVEN. NO S/S INFECTION. LINE SUTURES INTACT.
--- NOTE | 2019-04-30 19:22 | NUR ---
PT RECEIVED A/O X4, FAMILY AT BEDSIDE. TELE #2, DENIES ANY CP/PRESSURE. WEAK PEDAL PULSES, TRACE EDEMA TO BLE. BREATHING IS EVEN AND UNLABORED ON RA, NO RESP DISTRESS NOTED. ABD SOFT AND NONDISTENDED, DENIES N/V. CONTACT PRECAUTIONS IN PLACE FOR CDIFF(+) AND MRSA NARES(+). KAMARA CATH SECURED AND IN PLACE, DRAINING ROSA URINE. GENERALIZED WEAKNESS. ERYTHEMA TO GROIN AND COCCYX, SAKINA; MULTIPLE WOUNDS TO BLE, DRSG IN PLACE, CDI. PREVALON BOOT TO LLE. PT DENIES HAVING ANY PAIN AT THIS TIME. SL TO KATHERINE AND RAC, PATENT AND INTACT, SITES FREE FROM REDNESS OR SWELLING. RIJ IN PLACE, ALL PORTS PATENT AND INTACT, FLUSHED AND NOTED WITH GOOD BLOOD DRAW, DRSG CDI AND WAS CHANGED TODAY DURING DAY SHIFT. PT'S SX WAS POSTPONED TODAY AND SX DATE AND TIME STILL PENDING, UPDATED PT AND FAMILY. BED IN LOWEST SETTING, SIDE RAILS UP X2, BED ALARM ON, CALL LIGHT WITHIN REACH. WILL CONT TO MONITOR.
--- NOTE | 2019-04-30 19:46 | NUR ---
CONTACT ISOLATION FOR CDIFF. NPO FOR SURGERY THIS AFTERNOON. BREATHING FREELY ONRA. SL TO RT AC AND LEFT FA PATENT. TRIPLE LUMEN CATH 3 PORTS PATENT. CONTINUES TO HAVE WATERY STOOLS. CONSENTS SIGNED, CK LIST COMPLETED EXCEPT FOR VS. CALL LIGHT WITHIN REACH.
--- NOTE | 2019-04-30 19:49 | NUR ---
RESTING QUIETLY WITH FAMILY T BEDSIDE. FAMILY WOULD LIKE TO KNOW WHY SURGERY WAS POSTPONED. CONTINUES ON BICARB 100 CC HOUR, CHARLESO,ZOCHANGN AND FLAGYL. BED IN LOW POSITION. BED ALARM ON. CALL LIGHT WITHIN REACH.
[2019-04-30 21:06] VITALS: BP 136/59
--- NOTE | 2019-05-01 00:02 | NUR ---
PT RESTING IN BED WITH EYES CLOSED, BUT IS EASILY AROUSABLE. BREATHING IS EVEN AND UNLABORED, NO RESP DISTRESS NOTED. PT DENIES HAVING ANY PAIN AT THIS TIME. PT PENDING POSSIBLE SX TOMORROW, DR MAYORGA CALLED AND MADE AWARE, ORDERS RECEIVED FOR NPO AFTER MIDNIGHT. NO ACUTE DISTRESS NOTED. [facility] TO [facility], SITE WNL. CALL LIGHT WITHIN REACH. WILL CONT TO MONITOR.
--- NOTE | 2019-05-01 00:50 | NUR ---
RECEIVED CALL FROM LAB. PER MARKET MAKER, ABSCESS/TISSUE CULTURE (+) FOR MORGANELLA AND RESISTANT TO CARBAPENIM, AND (+) FOR KLEBSIELLA AND ESBL. DR MAYORGA CALLED AND MADE AWARE. NO NEW ORDERS AT THIS TIME.
[2019-05-01 05:45] VITALS: BP 120/59
[2019-05-01 06:45] LABS: CALCIUM 8.2 mg/dL (8.5-10.1); CARBON DIOXIDE 14.6 mmol/L (21-32); CHLORIDE SERUM 110 mmol/L (98-107); CREATININE SERUM 1.1 mg/dL (0.7-1.3); GFR1 > 60 mL/min; GLUCOSE SERUM 185 mg/dL (74-106); MAGNESIUM 1.7 mg/dL (1.8-2.4); POTASSIUM SERUM 3.5 mmol/L (3.5-5.1); SODIUM SERUM 137 mmol/L (136-145)
--- NOTE | 2019-05-01 06:45 | NUR ---
PT SLEPT WELL THROUGHOUT THE EVENING. BREATHING IS EVEN AND UNLABORED, NO RESP DISTRESS NOTED. PT DENIES ANY PAIN AT THIS TIME. PT REMAINS NPO FOR POSSIBLE PROCEDURE TODAY, NPO SIGN POSTED. RIJ INTACT, ALL PORTS PATENT, DRSG CDI, SITE WNL. SL TO KATHERINE AND RAC, PATENT AND INTACT, SITE WNL. NO ACUTE CHANGES ENCOUNTERED DURING SHIFT. ALL NEEDS MET. CALL LIGHT WITHIN REACH. CONTINUITY OF CARE ENDORSED TO AM NURSE. ALL QUESTIONS AND CONCERNS ADDRESSED.
[2019-05-01 06:46] LABS: PLATELET COUNT 323 x10^3mcL (130-400)
[2019-05-01 06:58] LABS: BASOPHIL % 0 % (0-2); RED CELL DISTRIBUTION WIDTH 18.7 % (11.5-14.5)
--- NOTE | 2019-05-01 07:36 | NUR ---
PT IN NO ACUTE DISTRESS. CONTINUITY OF CARE ENDORSED TO AM NURSE. ALL QUESTIONS AND CONCERNS ADDRESSED.
--- NOTE | 2019-05-01 08:00 | NUR ---
RECEIVED PATIENT RESTING IN BED COMFORTABLY A/O X4, CLEAR SPEECH, ABLE TO MAKE NEEDS KNOWN AND FOLLOW COMMANDS. TELE # [address], DENIES CHEST PAIN, BREAHTING EVEN AND UNLABBORED ON RA, DENIES SOB, NO DISTRESS NOTED. PATIENT HAS CENTRAL LINE TO RIJ TLC, ALL PORTS FLUSHED WELL WITH 10 ML NS, DRESSING CDI. IV TO KATHERINE AND RAC H/L INTACT AND PATENT. PATIENT HAS DRESSINGS TO RLE AND LLE, CDI, PREVALON BOOT TO LEFT FOOT IN PLACE. CONTACT ISOLATION PRECAUTIONS MAINTAINED. PATIENT IS CALM WITH CARE. INSTRUCTED TO CALL FOR ASSISTANCE IF NEEDED, SAFETY PERCAUTIONS MAINTAINED. WILL MONITOR.
[2019-05-01 09:51] VITALS: BP 118/58
--- NOTE | 2019-05-01 11:25 | NUR ---
PATIENT RESTING IN BED COMFORTABLY NO DISTRESS NOTED. DUE MEDICATION GIVEN, TOLERATED WELL. ALL NEEDS ATTENDED TO. SAFETY PRECAUTIONS MAINTAINED. WILL MONITOR.
--- NOTE | 2019-05-01 11:40 | NUR ---
PATIENT SEEN AMBULATING IN THE HALLWAY ACCOMPANIED BY FAMILY, NO DISTRESS NOTED. SAFETY PRECAUTIONS MAINTAINED. WILL MONITOR.
--- NOTE | 2019-05-01 12:35 | NUR ---
PATIENT REFUSED VANCO PO AND GABAPENTIN PO (SEE eMAR). MELISA SYLVESTER MADE AWARE. PATIENT REMAINS NPO FOR POSSIBLE PROCEDURE THIS AFTERNOON. WILL UPDATE FAMILY PER PATIENT REQUEST.
[2019-05-01 12:50] VITALS: BP 136/62
--- NOTE | 2019-05-01 12:54 | NUR ---
RECEIVED CALL FROM KASSANDRA STRONG IN OR STATED DR. SANTA WILL DO PROCEDURE TODAY AT 1500, REPORT GIVEN TO KASSANDRA STRONG ALL QUESTIONS AND CONCERNS ADDRESSED. PATIENT AND DAUGHTER KENDALL UPDATED WITH PLAN OF CARE ALL QUESTIONS AND CONCERNS ADDRESSED. SAFETY PRECAUTIONS MAINTAINED. WILL MONITOR.
--- NOTE | 2019-05-01 15:35 | NUR ---
PATIENT RESTING IN BED COMFORTABLY NO DISTRESS NOTED, DAUGHTER KENDALL AT BEDSIDE AND INFORMED SURGEON IS FINISHING UP ANOTHER PROCEDURE AND WHEN SHE IS DONE PATIENT WILL BE PICKED UP AND TAKEN TO OR. PATIENT AND DAUGHTER VERBALIZED UNDERSTANDING. ALL QUESTIONS AND CONCERNS ADDRESSED. SAFETY PRECAUTIONS MAINTAINED. WILL MONITOR.
[2019-05-01 17:39] VITALS: BP 143/60
--- NOTE | 2019-05-01 18:10 | NUR ---
PATIENT RESTING IN BED COMFORTABLY NO DISTRESS NOTED, DAUGHTER NICOLÁS AT BEDSIDE. IV TO RAC AND KATHERINE H/L INTACT AND PATENT, CENTRAL LINE TO RIJ TLC CDI ALL PORTS FLUSHED WELL, DRESSING CDI. KAMARA CATH TO GRAVITY DRAINING ROSA COLORED URINE, TUBING FREE OF KINKS BAG IS OFF FLOOR. PATIENT NPO STATUS MAINTAINED PENDING PROCEDURE, CALLED OR AND SPOKE WITH LUIS WHO STATED PROCEDURE IS STILL SCHEDULED FOR TODAY AWAITING SURGEON. PATIENT AND DAUGHTER NICOLÁS MADE AWARE, ALL QUESTIONS AND CONCERNS ADDRESSED. ALL NEEDS ATTENDED TO, SAFETY PRECAUTIONS MAINTAINED. WILL ENDORSE CARE TO ONCOMING NURSE.
--- NOTE | 2019-05-01 18:40 | NUR ---
PATIENT TAKEN DOWN TO OR VIA BED ACCOMPANIED BY OR NURSE KASSANDRA, AND DAUGHTER NICOLÁS. TELE MONITOR REMOVED, BRAND COORDINATOR MADE AWARE.
--- NOTE | 2019-05-01 21:38 | NUR ---
[facility], PT RESTING COMFORTABLY IN BED WITH NO ACUTE DISTRESS AT THIS TIME, ASSESSMENT PERFORMED AT THIS TIME, PT HAS NO COMPLAINTS OF PAIN OR RESPIRATORY DISTRESS AT THIS TIME, PT IS A/OX4 NO COMPLAINTS OF SOFIA OR DIZZINESS, PT IS DROWZY, SURGICAL DRESSING IN PLACE TO THE LEFT KNEE, SMALL AMOUNT OF BLOODY DRAINAGE PRESENT OUTLINED WITH MARKER, IVS TO THE RIGHT AC, LFA, AND RIGHT IJ, ALL SIGHTS FREE OF REDNESS AND PAIN, SAFETY PRECAUTIONS IN PLACE WILL CONTINUE TO MONITOR
[2019-05-01 22:02] VITALS: BP 134/60
--- NOTE | 2019-05-01 23:50 | NUR ---
PT SLEEPING COMFORTABLY IN BED, NO SIGNS OF ACUTE DISTRESS, RESPIRATIONS EVEN AND UNLABORED, NO CHANGE IN WOUND DRAINAGE, SAFETY PRECAUTIONS IN PLACE, WILL CONTINUE TO MONITOR
--- NOTE | 2019-05-02 02:00 | NUR ---
PT SLEEPING IN BED COMFORTABLY , NO SIGNS OF ACUTE DISTRESS AT THIS TIME, NO CHANGE IN WOUND DRAINAGE AT THIS TIME, RESPIRATIONS EVEN AND UNLABORED, SAFETY PRECAUTIONS IN PLACE, WILL CONTINUE TO MONITOR.
--- NOTE | 2019-05-02 05:20 | NUR ---
PT ONLY HAD 100 ML OF URINE SINCE RETURN FROM OR, CALLED DR MAYORGA AND INFORMED HER, NO NEW ORDERS AT THIS TIME, SAID TO CONTINUE TO MONITOR.
--- NOTE | 2019-05-02 05:50 | NUR ---
PT HAD NO ACUTE DISTRESS THROUGH THE NIGHT, PT DENIED PAINT THOUGH SHIFT, PT HAD SMALL AMOUNT OF BLOODY DRAINAGE TO SURGICAL SITE, MARKED THE WOUND WHEN PT CAME UP FROM SURGERY AND DRAINAGE HAS NOT INCREASED PAST LINES, PT DENIED ANY SOB OR CHEST PAIN THROUGH THE NIGHT. PT HAD MINIMAL URINE OUTPUT THROUGH SHIFT INFORMED DR MAYORGA AND RECIEVED NO NEW ORDERS, SAFETY PRECAUTIONS WERE MAINTAINED THROUGH SHIFT WILL CONTINUE TO MONITOR AND ENDORSE CARE
[2019-05-02 06:35] VITALS: BP 138/88
[2019-05-02 06:52] LABS: BASOPHIL % 0.2 % (0-2); PLATELET COUNT 264 x10^3mcL (130-400); RED CELL DISTRIBUTION WIDTH 17.9 % (11.5-14.5)
[2019-05-02 07:04] LABS: CALCIUM 7.7 mg/dL (8.5-10.1); CARBON DIOXIDE 22.8 mmol/L (21-32); CHLORIDE SERUM 110 mmol/L (98-107); CREATININE SERUM 0.9 mg/dL (0.7-1.3); GFR1 > 60 mL/min; GLUCOSE SERUM 261 mg/dL (74-106); POTASSIUM SERUM 3.3 mmol/L (3.5-5.1); SODIUM SERUM 141 mmol/L (136-145)
--- NOTE | 2019-05-02 07:10 | NUR ---
RECEIVED BEDSIDE REPORT FROM ENVIRONMENTAL RESEARCH PROJECT MANAGER NURSE. PATIENT IS BACK FROM OR FOR L BELOW KNEE AMPUTATION. PATIENT IS STABLE NO APPARENT SIGNS OF SOB, OR RESPIRATORY DISTRESS. PATIENT IS ALER T AND ORIENTED X4. PATIENT DENIES PAIN AT THIS TIME. DRESSING TO SURGICAL SITE CDI, DRESSING TO RIGHT CDI. PATIENT HAS MULTIPLE IV ACCESS. NO REDNESS OR SWELLING NOTED. PATIENT ON CONTACT PRECAUTION FOR MRSA AND C-DIFF. ON ROOM AIR, RESPIRATIONS EVEN NOT LABORED. FOLLWY CATH IN PLACE. CALL LIGHT WITH IN REACH, BED IN LOW POSITION, BED RAILS UP X2. QUESTIONS AND CONCERNS ADDRESSED. SAFETY PRECAUTUIONS IN PLACE.
[2019-05-02 08:20] VITALS: BP 125/60
--- NOTE | 2019-05-02 09:40 | NUR ---
ADMINISTERED MORNING MEDICATION. REPLACED IV LINES. IV TO RAC WAS INFILTRATED. DC'D IV TO RAC. INFUSING MEDICATION TO THE LEFT UPPER ARM. AND THE IJ CENTRAL LINE. PATIENT DENIES PAIN OR OTHER NEEDS AT THIS TIME. SAFETY PRECAUTIONS IN PLACE.
--- NOTE | 2019-05-02 09:40 | NUR ---
SURGEON AT BEDSIDE TO EVALUATE BKA, AND CHANGE DRESSING. PATIENT TOLORATED WELL. PATIENT DENIES PAIN AT THIS TIME. SAFETY PRECAUTIONS IN PLACE.
--- NOTE | 2019-05-02 11:01 | NUR ---
PATIENT IS STABLE NO APPARENT SIGNS OF SOB, RESPIRATORY DISTRESS OR PAIN. PATIENT RESTING COMFORTABLY IN BED. SURGICAL SITE DRESSING INTACT. RIGHT FOOT DRESSING CDI. PATIENT DENIES OTHER NEEDS AT THIS TIME. SAFETY PRECAUTIONS IN PLACE.
--- NOTE | 2019-05-02 12:33 | NUR ---
PATIENT C/O PAIN TO LEFT LOWER EXTREMITY. ADMINISTERED MEDICATION PER EMAR. PATIENT IS STABLE, NO APPARENT SIGNS OF SOB, OR RESPIRATORY DISTRESS. FAMILY AT BEDSIDE. PATIENT DENIES OTHER NEEDS AT THIS TIME. SAFETY PRECAUTIONS IN PLACE.
--- NOTE | 2019-05-02 12:44 | NUR ---
ADMINISTERED MEDICATION PER EMAR AND GLUCOSE CHECK. PATIENT TOLORATED WELL. PATIENT WAS C/O PAIN TO LEFT LOWER LIMB 07/04. ADMINISTERED MEDICATION PER EMAR. FAMILY AT BEDSIDE. QUESTIONS AND CONCERNS ADDRESSED. SAFETY PRECAUTIONS IN PLACE.
[2019-05-02 12:55] VITALS: BP 128/60
--- NOTE | 2019-05-02 13:23 | NUR ---
ADMINISTERED MEDICATION PER EMAR. PATIENT IS STABLE, NO APPARENT SIGNS OF PAIN, SOB, OR RESPIRATORY DISTRESS. PATIENT DENIES PAIN AT THIS TIME. FAMILY AT BEDSIDE. IV INFUSING WELL, NO REDNESS NOTED. KAMARA CATH IN PLACE, DRAINING ROSA URINE. SAFETY PRECAUTIONS IN PLACE. PATIENT DENIES OTHER NEEDS AT THIS TIME.
--- NOTE | 2019-05-02 16:07 | NUR ---
PATIENT IS STABLE NO APPARENT SIGNS OF PAIN, SOB, OR RESPIRATORY DISTRESS. DAMINISTERED MEDCATION PER EMAR. PATIENT TOLORATED WELL. CALL LIGHT WITHIN REACH SAFETY PRECAUTIONS IN PLACE. PATIENT DENIES OTHER NEEDS AT THIS TIME.
[2019-05-02 17:00] VITALS: BP 107/59
--- NOTE | 2019-05-02 17:32 | NUR ---
PATIENT IS STABLE NO APPARENT SIGNS OF SOB, RESPIRATORY DISTRESS OR PAIN. PATIENT RESTING COMFORTABLY IN BED. ADMINISTERED MEDICATION PER EMAR. ADMINISTERED GLUCOSE CHECK PER ORDERS. SURGICAL SITE DRESSING INTACT. RIGHT FOOT DRESSING CDI. PATIENT DENIES OTHER NEEDS AT THIS TIME. SAFETY PRECAUTIONS IN PLACE.
--- NOTE | 2019-05-02 18:07 | NUR ---
PAGED NURSE ORTHOPEDIC MELISA REGARDING URINE OUTPUT. PATIENT HAD A TOTAL URINE OUT UP OF 250ML FOR 11 HOUR PERIOD. SPOKE WITH MELISA, PER NURSE ORTHOPEDIC, FLUSH KAMARA CATH.
--- NOTE | 2019-05-02 18:52 | NUR ---
PATIENT IS STABLE, NO APPARENT SIGNS OF PAIN, SOB, OR RESPIRATORY DISTRESS. DRESSINGS CDI, CALL LIGHT WITHIN REACH, BED IN LOW POSITION, SAFETY PRECAUTIONS IN PLACE. WILL ENDORSE CARE TO TRAIN SYSTEM OPERATOR NURSE.
--- NOTE | 2019-05-02 19:10 | NUR ---
ENDORSED CARE TO PHP PROGRAMMER NURSE ESTEFANI
--- NOTE | 2019-05-02 19:35 | NUR ---
RECIEVED PT SLEEPING IN BED WITH NO ACUTE DISTRESS NOTED AT THIS TIME, ASSESSMENT COMPLETED AT THIS TIME, DRESSING CDI TO THE LEFT KNEE, AND RIGHT FOOT, TELE 2 NSR, PT DENIES PAIN, SOB, OR CHEST PAIN AT THIS TIME, SAFETY PRECAUTIONS IN PLACE WILL CONTINUE TO MONITOR
[2019-05-02 21:07] VITALS: BP 119/57
--- NOTE | 2019-05-02 22:10 | NUR ---
PT SLEEPING IN BED, EASILY AROUSABLE, PT DENIES PAIN AT THIS TIME, SMALL NICKEL SIZED SPOT OF SANGUINOUS DRAINAGE SEEN COMING TROUGH DRESSING, CIRCLED WITH MARKER, ALL NEEDS ATTENDED TO AT THIS TIME, SAFETY PRECAUTIONS IN PLACE WILL CONTINUE TO MONITOR
--- NOTE | 2019-05-03 01:10 | NUR ---
PT SLEEPING IN BED COMFORTABLY NO SIGNS OF ACUTE DISTRESS AT THIS TIME, RESPIRATIONS EVEN AND UNLABORED, NO CHANGE IN WOUND DRAINAGE FROM PREVIOUSLY OUTLINED AREA. SAFETY PRECAUTIONS IN PLACE, WILL CONTINUE TO MONITOR
--- NOTE | 2019-05-03 05:30 | NUR ---
PT SLEPT THROUGH MOST OF THE NIGHT WITH NO ACUTE DISTRESS NOTED THROUGH THE NIGHT, PT HAD SMALL AMOUNT OF DRAINAGE OF LEFT KNEE BANDAGE, PT HAD NO COMPLAINTS OF PAIN THROUGH THE NIGHT, SAFETY PRECAUTIONS WERE MAINTAINED THROUGH THE NIGHT, WILL CONTINUE TO MONITOR AND ENDORSE CARE TO ONCOMING RN
[2019-05-03 05:35] VITALS: BP 124/55
[2019-05-03 07:16] LABS: PLATELET COUNT 199 x10^3mcL (130-400)
[2019-05-03 07:19] LABS: BASOPHIL % 0 % (0-2)
--- NOTE | 2019-05-03 08:00 | NUR ---
RECEIVED PATEINT A/A/OX3. CLEAR SWEDISH SPEAKING. TELE#2; SR; HR = 83. DENIED CHEST PAIN. NO RESP DISTRESS ON RA. TOLERATED CLEAR LIQUID WELL. FINISHED 80% OF CLEAR LIQUID DIET BREAKFAST. NO N/V. KAMARA PATENT W/ YELLOW CLOUDY URINE OUTPUT. LT LEG BKA. DRSG TO LT STUMP D/C/I. RT FOOT GANGRENE ULCER W/ DRSG D/C/I. DENIED PAIN NOW. IVF OF D5W W/ BICARBONATE INFUSING AT 100CC/HR VIA CENTRAL LINE TO RIJ. IVHL'D TO LUE. BOTH OF IV SITES CLEAN. NO REDNESS/DRAINAGE. BED BOUND. MAX ASSIST FOR ADL'S NEED. CONTACT ISOLATION FOR C DIFF (+); MRSA (+) NARES AND WOUND CULTURE. CALL LIGHT IN REACH.
--- NOTE | 2019-05-03 08:25 | NUR ---
CALLED PHARMACIST WITH PATIENT'S VANCO TR WAS 18.4 ON 04/30 LAB. PATIENT HAS VANCO IVPB AND VANCO PO. PHARMACIST SAID VANCO LEVEL CHECK ONCE A WEEK B/O RENAL FUNCTION WNL.
[2019-05-03 08:33] LABS: ALKALINE PHOSPHATASE 77 U/L (46-116); ALT/SGPT 33 U/L (16-63); AST/SGOT 10 U/L (15-37); BILIRUBIN TOTAL 0.3 mg/dL (0.20-1.00); CARBON DIOXIDE 26.2 mmol/L (21-32); CHLORIDE SERUM 106 mmol/L (98-107); CREATININE SERUM 0.9 mg/dL (0.7-1.3); GFR1 > 60 mL/min; GLUCOSE SERUM 94 mg/dL (74-106); MAGNESIUM 1.4 mg/dL (1.8-2.4); SODIUM SERUM 138 mmol/L (136-145)
[2019-05-03 08:36] LABS: ALBUMIN 1.1 g/dL (3.4-5.0); TOTAL PROTEIN, SERUM 4.3 g/dL (6.4-8.2)
[2019-05-03 08:37] LABS: POTASSIUM SERUM 2.6 mmol/L (3.5-5.1)
--- NOTE | 2019-05-03 08:38 | NUR ---
KIAN VINCENT N.P. WITH PATIENT'S POTASSIUM LEVEL 2.6.
[2019-05-03 09:34] VITALS: BP 124/60
--- NOTE | 2019-05-03 11:08 | NUR ---
K RIDER 40 MEQ IV STARTED.
[2019-05-03 12:54] VITALS: BP 123/55
[2019-05-03 17:10] VITALS: BP 111/55
--- NOTE | 2019-05-03 18:41 | NUR ---
PATIENT FINISHED 50% OF [facility] DIET LUNCH. BUT REFUSED DINNER. STATED "NO APPETITE". HAD LARGE LOOSE BM X2 THIS SHIFT. URINE VIA KAMARA 800CC COLLECTED. REDNESS TO PERINEAL AREA. Z GUARD APPLIED. K RIDER 40 MEQ IV GIVEN. CONTINUE ON D5W W/ BICARBONATE 100CC/HR. CENTRAL LINE AREA CLEAN. ENDORSED CARE TO [facility] NURSE.
--- NOTE | 2019-05-03 19:00 | NUR ---
CENTRAL LINE CARE GIVEN. DRSG CHANGED. SITE CLEAN, NO REDNESS AND DRAIANGE. ALL PORTS PATENT AND FLUSHED WITH NS. ENDORSE CARE TO NOC NURSE.
--- NOTE | 2019-05-03 19:40 | NUR ---
RECIEVED PT RESTING IN BED COMFORTABLY WITH NO ACUTE SIGNS OF DISTRESS, PT DENIED ANY SOB OR CHEST PAIN, NO SIGNS OF DRAINAGE ON DRESSING, ASSESSMENT PERFORMED AT THIS TIME, CENTRAL LINE TO THE RIGHT IJ, IV TO THE KATHERINE, SAFETY PRECAUTIONS IN PLACE, WILL CONTINUE TO MONITOR
[2019-05-03 21:31] VITALS: BP 114/55
--- NOTE | 2019-05-03 23:00 | NUR ---
PT SLEEPING COMFFORTABLY WITH NO ACUTE DISTRESS NOTED AT THIS TIME, NO CHANGE IN WOUND DRAINAGE. SAFETYY PRECAUTIONS INT PLACE WILL CONTINUE TO MONITOR
--- NOTE | 2019-05-04 01:25 | NUR ---
PT SLEEPING IN BED NO CHANGE IN WOUND DRAINAGE, PT DENIES SOB AT THIS TIME, SAFETY PRECAUTIONS IN PLACE WILL CONTINUE TO MONITOR.
--- NOTE | 2019-05-04 04:30 | NUR ---
REMOVED DRESSING ON RIGHT FOOT AND PHOTGRAPHED WOUND, TWO DIABETIC FOOT ULCERS ONE TO THE INNER PART OF FOOT [id number], AND ONE TO THE OUTER ASPECT OF FOOT, [id number], APPLIED 4X4 GAUZE TO EACH WOUND AND WRAPPED IN KERLIX
[2019-05-04 05:30] VITALS: BP 115/59
--- NOTE | 2019-05-04 05:31 | NUR ---
PT SLEPT THROUGH THE NIGHT WITH NO ACUTE DISTRESS, PT HAD NO COMPLAINTS OF CHEST PAIN OR SOB, DRESSING ON RIGHT FOOT CHANGED AND WOUND PHOTOGRAPHED, NO CHANGE IN DRAINAGE TO LEFT SURGICAL DRESSING, SAFETY PRECAUTIONS MAINTAINED THROUGH SHIFT, WILL CONTINUEN TO MONITOR AND ENDORSE CARE TO ONCOMING RN
[2019-05-04 06:44] LABS: BASOPHIL % 0.1 % (0-2); PLATELET COUNT 174 x10^3mcL (130-400)
[2019-05-04 06:45] LABS: RED CELL DISTRIBUTION WIDTH 17.8 % (11.5-14.5)
[2019-05-04 07:18] LABS: CALCIUM 7.1 mg/dL (8.5-10.1); CARBON DIOXIDE 27.1 mmol/L (21-32); CHLORIDE SERUM 105 mmol/L (98-107); GFR1 > 60 mL/min; GLUCOSE SERUM 122 mg/dL (74-106); MAGNESIUM 1.3 mg/dL (1.8-2.4); POTASSIUM SERUM 3.1 mmol/L (3.5-5.1); SODIUM SERUM 140 mmol/L (136-145)
--- NOTE | 2019-05-04 07:20 | NUR ---
RECEIVED HAND OFF REPORT FROM NURSE. PATIENT FOUND RESTING SUPINE IN BED. AROUSABLE, GRENADIAN SPEAKING, A/O X4, TELE #2. NO APPARENT DISTRESS OR DIFFICULTY BREATHING REPORTED. DRESSING TO LLE S/P BKA. DRESSING C/D/I, SMALL AREA OF DISCHARGE MARKED BY PREVIOUS NURSE AND REMAINED WITHIN MARKING. DRESSING TO RIGHT FOOT C/D/I. KAMARA PRESENT WITH ROSA COLORED URINE NOTED. ORIENTED TO CALL LIGHT WITH CALL LIGHT PLACED WITHIN REACH.
--- NOTE | 2019-05-04 09:25 | NUR ---
ADMINISTERED MED PER EMAR. PT TO SEE PATIENT. PATIENT HAD NO COMPLAINTS AT THIS TIME. CALL LIGHT WITHIN REACH
--- NOTE | 2019-05-04 10:19 | NUR ---
STARTED VANCOMYCIN PER EMAR. PATIENT RESTING COMFORTABLY. CALL LIGHT WITHIN REACH. WILL CONTINUE TO MONITOR
[2019-05-04 10:33] VITALS: BP 96/46
--- NOTE | 2019-05-04 12:44 | NUR ---
[id number] MEDICATION PER MAR. UNABLE TO ADMINISTER MAGNESIUM AT THIS TIME DUE TO PREVIOUS MEDICATION STILL INFUSING. BS WAS 244, INSULIN 6 UNITS ADMINISTERED PER SLIDING SCALE. ASSITED PATIENT WITH LUNCH RAY AND PATIENT SAT UP TO EAT. CALL LIGHT WITHIN REACH
--- NOTE | 2019-05-04 13:43 | NUR ---
PATIENT RESTING COMFORTABLY AT THIS TIME. SUPINE IN BED. CALL LIGHT WITHIN REACH
[2019-05-04 13:46] VITALS: BP 117/57
[2019-05-04 16:51] VITALS: BP 104/65
--- NOTE | 2019-05-04 17:07 | NUR ---
ADMINISTERED MEDICATION PER MAR. PATIENT RESTING COMFORTABLY AT THIS TIME. CALL LIGHT WITHIN REACH
--- NOTE | 2019-05-04 18:37 | NUR ---
PERFORMED KAMARA CATH CARE, REDNESSED NOTED TO GROIN SO BARRIER CREAN APPLIED. LOTION APPLIED TO RIGHT THIGH, PATIENT WAS SEEN SCRATCHING AREA WITH DRYNESS PRESENT. DRESSING TO LLE CHANGED, SURGICAL SITE OBSERVED. NO REDNESS, SWELLING OR DISCHARGE PRESENT. CLEAN DRY DRESING PLACED. CHG WIPES USED ON UPPER EXTREMITIES, CHEST AND NECK. PATIENT REPOSITIONED IN BED, CALL LIGHT WITHIN REACH
--- NOTE | 2019-05-04 19:21 | NUR ---
PT RECEIVED A/O X4, ABLE TO MAKE NEEDS KNOWN AND FOLLOW SIMPLE COMMANDS. TELE #2, DENIES ANY CP/PRESSURE. WEAK RLE PULSE, TRACE EDEMA TO RLE. BREATHING IS EVEN AND UNLABORED ON RA, NO RESP DISTRESS NOTED. ABD SOFT AND NONDISTENDED, DENIES N/V. CONTACT PRECAUTIONS IN PLACE FOR CDIFF(+) AND MRSA NARES(+). KAMARA CATH SECURED AND IN PLACE, DRAINING ROSA URINE. GENERALIZED WEAKNESS, PT IS S/P LEFT BKA ON 05/01/19. DRESSING TO LBKA, CDI, AND WAS CHANGED DURING DAY SHIFT. DRESSING TO RLE IN PLACE, CDI. PT DENIES HAVING ANY PAIN AT THIS TIME. SL TO KATHERINE, PATENT AND INTACT, SITES FREE FROM REDNESS OR SWELLING. RIJ IN PLACE, ALL PORTS PATENT AND INTACT, FLUSHED AND NOTED WITH GOOD BLOOD DRAW, DRSG CDI. BED IN LOWEST SETTING, SIDE RAILS UP X2, BED ALARM ON, CALL LIGHT WITHIN REACH. NO ACUTE DISTRESS NOTED. WILL CONT TO MONITOR.
[2019-05-04 21:38] VITALS: BP 108/53
--- NOTE | 2019-05-05 00:15 | NUR ---
PT RESTING IN BED WITH EYES CLOSED, BUT IS EASILY AROUSABLE. BREATHING IS EVEN AND UNLABORED, NO RESP DISTRESS NOTED. PT DENIES HAVING ANY PAIN AT THIS TIME. KNEE BRACE IN PLACE TO LLE. RIJ, INTACT, SITE WNL. NO ACUTE DISTRESS NOTED. BED ALARM ON, CALL LIGHT WITHIN REACH. WILL CONT TO MONITOR.
[2019-05-05 05:47] VITALS: BP 100/47
--- NOTE | 2019-05-05 06:33 | NUR ---
PT SLEPT WELL THROUGHOUT THE EVENING. BREATHING IS EVEN AND UNLABORED, NO RESP DISTRESS NOTED. PT DENIES HAVING ANY PAIN AT THIS TIME. DRESSING CHANGE PERFORMED TO LEFT BKA; ADAPTIC AND KERLIX APPLIED ORDERED, SITE IS FREE FROM REDNESS OR SWELLING, 21 LAUREN NOTED, NO DRAINAGE OR ODOR OBSERVED. KNEE BRACE PLACED. CHG BATH AND KAMARA CARE GIVEN. PT HAD BM, LOOSE, PT CLEANED AND REPOSITIONED. NO ACUTE CHANGES ENCOUNTERED DURING SHIFT. ALL NEEDS MET. SL TO KATHERINE, PATENT AND INTACT. RIJ IN PLACE, ALL PORTS PATENT, SITES FREE FROM REDNESS OR SWELLING. BED IN LOWEST SETTING, SIDE RAILS UP X2, CALL LIGHT WITHIN REACH. WILL ENDORSE CARE TO AM NURSE.
[2019-05-05 07:00] LABS: BASOPHIL % 0.4 % (0-2); PLATELET COUNT 162 x10^3mcL (130-400)
[2019-05-05 07:16] LABS: CALCIUM 7.2 mg/dL (8.5-10.1); CARBON DIOXIDE 29.8 mmol/L (21-32); CHLORIDE SERUM 107 mmol/L (98-107); GFR1 > 60 mL/min; GLUCOSE SERUM 93 mg/dL (74-106); MAGNESIUM 2.4 mg/dL (1.8-2.4); POTASSIUM SERUM 3.4 mmol/L (3.5-5.1); SODIUM SERUM 140 mmol/L (136-145)
--- NOTE | 2019-05-05 07:33 | NUR ---
PT IN NO ACUTE DISTRESS. CONTINUITY OF CARE ENDORSED TO AM NURSE. ALL QUESTIONS AND CONCERNS ADDRESSED.
--- NOTE | 2019-05-05 07:47 | NUR ---
A+OX4, FORGETFUL, TELE 2, WEAK PEDAL PULSES, TRACE EDEMA BLE, LUNG SOUNDS DIMINISHED, TOLERATING RA, BOWEL SOUNDS ACTIVE, KAMARA CATH DRAINING ROSA URINE TO GRAVITY, GENERALIZED WEAKNESS, DRESSING TO L BKA WITH LAUREN, ADAPTIC, AND KERLIX WITH KNEE BRACE CDI (DRESSING CHANGED TODAY 05/05 BY NOC SHIFT), RLE WOUNDS WITH DRESSING CDI, IV IN AKTHERINE SALINE LOCKED SITE WNL, CENTRAL LINE TO RIJ WITH DRESSING CDI SALINE LOCKED.
[2019-05-05 09:27] VITALS: BP 105/57
--- NOTE | 2019-05-05 11:20 | NUR ---
PT RESTING IN BED, NO RESPIRATORY DISTRESS NOTED, DENIES PAIN, FAMILY AT BEDSIDE, CALL LIGHT WITHIN REACH.
--- NOTE | 2019-05-05 12:40 | NUR ---
Follow-up Nutrition Assessment: (225T-B) ROSENDA STOREY 68M Dx: Sepsis PMHx: DM2, Osteomyelitis, CKD, HDL, HTN, Anemia Labs: K 3.4L, Ca 7.2L, RBC 3.1L, Hgb 9.1L, HCT 27L Meds: Bactroban, Lactinex, Pepcid, Zofran Diet: CCHO PO Intake: 50-75% Weights: 138# (04/28) Skin: L BKA w/ dressing and knee brace CDI, RLE wounds w/ dressing CDI Elvis: 13 I/Os: 2688/660 (05/02) 3800/1653 (05/03) 4940/2153 (05/04) 2120/951 (05/05) Edema: trace BLE GI: Last BM: 05/04 Note (05/05): Visited pt bedside, spoke with pt and pt's Yakut-speaking only, communicated via daughter. Pt states his appetite is quite low and the food here is alright, but is able to tolerate current diet. PO intake noted 50-75%, but variable. Pt states UBW ~130#. Pt may be appropriate for diet supplementation. Spoke w/ Trang DRILLING RIG OPERATOR about adding Glucern nutrition shake BID to pt's diet order, confirmed. Estimated Nutritional Needs (based on 62.7 kg): Energy: 2422-2751 kcal (30-35 kcal/kg) Protein: 38-50 g (0.6-0.8 g/kg, CKD) Fluid: 2276-7813 mL (1 mL/kcal) or per Dr Nutrition Diagnosis: 04/30: Increased energy expenditure r/t sepsis AEB BUN 30 and Cr 1.4 05/05: Inadequate protein-energy intake r/t poor PO intake AEB underweight and BMI 19.4. Intervention: 1. Add Glucerna nutrition shake BID between meals. Monitor/Evaluate: Goal: Have pt meet at least 75% of estimated needs Monitor: PO intake, Labs, GI function F/U in 3-5 days as moderate risk (05/08 - 05/10)
--- NOTE | 2019-05-05 12:43 | NUR ---
Recommendation: 1. Add Glucerna nutrition shake BID between meals.
--- NOTE | 2019-05-05 13:17 | NUR ---
PT SITTING IN BED, EATING LUNCH, NO RESPRIATORY DISTRESS NOTED, DENIES PAIN, FAMILY AT BEDSIDE, CALL LIGHT WITHIN REACH.
[2019-05-05 13:55] VITALS: BP 147/69
[2019-05-05 14:00] VITALS: BP 123/58
[2019-05-05 17:08] VITALS: BP 106/55
--- NOTE | 2019-05-05 17:34 | NUR ---
PT RESTING IN BED, HAD LARGE LIQUID BM WITH MUCOUS, CLEANED, LINENS CHANGED, CHG WIPES WILMAR, KAMARA CARE DONE, CALL LIGHT WITHIN REACH.
--- NOTE | 2019-05-05 19:30 | NUR ---
PT RECEIVED A/O X4, ABLE TO MAKE NEEDS KNOWN. TELE #2, DENIES ANY CP/PRESSURE. WEAK RLE PULSE, TRACE EDEMA TO RLE. BREATHING IS EVEN AND UNLABORED ON RA, NO RESP DISTRESS NOTED. ABD SOFT AND NONDISTENDED, DENIES N/V. CONTACT PRECAUTIONS IN PLACE FOR CDIFF(+) AND MRSA NARES(+). KAMARA CATH SECURED AND IN PLACE, DRAINING ROSA URINE. GENERALIZED WEAKNESS, PT IS S/P LEFT BKA ON 05/01/19. DRESSING TO LBKA IN PLACE, CDI. LEFT KNEE BRACE IN PLACE. DRESSING TO RLE IN PLACE, CDI. PT DENIES HAVING ANY PAIN AT THIS TIME. SL TO KATHERINE, PATENT AND INTACT, SITES FREE FROM REDNESS OR SWELLING. RIJ IN PLACE, ALL PORTS PATENT AND INTACT, FLUSHED AND NOTED WITH GOOD BLOOD DRAW, DRSG CDI. BED IN LOWEST SETTING, SIDE RAILS UP X2, BED ALARM ON, CALL LIGHT WITHIN REACH. NO ACUTE DISTRESS NOTED. WILL CONT TO MONITOR.
--- NOTE | 2019-05-05 19:55 | NUR ---
ENDORSED CARE TO SATNAM STRONG.
[2019-05-05 21:18] VITALS: BP 105/55
--- NOTE | 2019-05-05 21:45 | NUR ---
DUE MEDS GIVEN ORDERED PER EMAR. PT HAD LARGE BM, LOOSE WITH MUCOUS NOTED. PT CLEANED AND REPOSITIONED, OPTIFOAM PLACED TO SACRUM. NO ACUTE DISTRESS NOTED. CALL LIGHT WITHIN REACH. WILL CONT TO MONITOR.
[2019-05-06 05:48] VITALS: BP 118/60
[2019-05-06 06:09] VITALS: BP 113/63
--- NOTE | 2019-05-06 06:42 | NUR ---
PT SLEPT WELL THROUGHOUT THE EVENING. BREATHING IS EVEN AND UNLABORED, NO RESP DISTRESS NOTED. PT DENIES HAVING ANY PAIN AT THIS TIME. DRESSING CHANGE PERFORMED TO LEFT BKA; ADAPTIC AND KERLIX APPLIED ORDERED, SITE IS FREE FROM REDNESS OR SWELLING, 21 LAUREN NOTED, NO DRAINAGE OR ODOR OBSERVED, KNEE BRACE PLACED. KENDRA WIPES AND KAMARA CARE GIVEN. PT HAD LARGE, LOOSE BM, GREENISH-BROWN IN COLOR. PT CLEANED AND REPOSITIONED. REDNESS NOTED TO COCCYX, OPTIFOAM PLACED. NO ACUTE CHANGES ENCOUNTERED DURING SHIFT. ALL NEEDS MET. SL TO KATHERINE, PATENT AND INTACT. RIJ IN PLACE, ALL PORTS PATENT, SITES FREE FROM REDNESS OR SWELLING. BED IN LOWEST SETTING, SIDE RAILS UP X2, CALL LIGHT WITHIN REACH. WILL ENDORSE CARE TO AM NURSE.
[2019-05-06 06:47] LABS: CALCIUM 7.2 mg/dL (8.5-10.1); CARBON DIOXIDE 27.8 mmol/L (21-32); CHLORIDE SERUM 107 mmol/L (98-107); GFR1 > 60 mL/min; GLUCOSE SERUM 104 mg/dL (74-106); POTASSIUM SERUM 3.7 mmol/L (3.5-5.1); SODIUM SERUM 140 mmol/L (136-145)
[2019-05-06 07:16] LABS: BASOPHIL % 0.5 % (0-2); PLATELET COUNT 194 x10^3mcL (130-400); RED CELL DISTRIBUTION WIDTH 18.3 % (11.5-14.5)
--- NOTE | 2019-05-06 07:29 | NUR ---
PT IN NO ACUTE DISTRESS. CONTINUITY OF CARE ENDORSED TO AM NURSE. ALL QUESTIONS AND CONCERNS ADDRESSED.
--- NOTE | 2019-05-06 07:50 | NUR ---
PATIENT RESTING IN BED, A/OX4 FORGETFUL AT TIMES. TELE MONITOR IN PLACE. DENIES SOB, ON ROOM AIR. PREVIOUS NURSE STATES PATIENT HAD CONTINOUS LOOSE STOOLS. KAMARA CATHETER DRAINING TO GRAVITY, ROSA URINE NOTED. ENCOURAGED PATIENT TO DRINK PLENTY OF FLUIDS. GENERALIZED WEAKNESS NOTED. ABX INFUSING TO RIJ, IV SITE CDI&PATENT, NO ERYTHEMA OR EDEMA NOTED. CALL LIGHT WITHIN REACH, BED IN LOW POSITION, WILL CONTINUE TO MONITOR PATIENT.
[2019-05-06] MEDS ORDERED: AMERINET CHOICE1 PD3 IV (08:44)
[2019-05-06] MEDS ORDERED: VANCOCIN125 MG PO (08:45)
[2019-05-06 09:52] VITALS: BP 110/58
--- NOTE | 2019-05-06 13:00 | NUR ---
PROVIDED PATIENT WITH A DRESSING CHANGE TO LLE, NO DRAINAGE NOTED. LAUREN INTACT. PATIENT DENIES PAIN AT THIS TIME. CALL LIGHT WITHIN REACH, BED IN LOW POSITION, WILL CONTINUE TO MONITOR FOR CHANGES.
--- NOTE | 2019-05-06 15:24 | NUR ---
PHYSICAL THERAPY DAILY NOTES CO-SIGN All documentation done by the Embedded Systems Designer for 05/06/19 has been reviewed. I agree with the documentation. Reviewed/Co-Signed by: Shaista Saha PT Documentation Done by:LESVIA VÁSQUEZ PTA FOR 05/05/19
[2019-05-06 15:37] VITALS: BP 110/58
--- NOTE | 2019-05-06 16:25 | NUR ---
PATIENT WAS D/C TO [facility] AT THIS TIME. PROVIDED PATIENT & FAMILY WITH DISCHARGE INSTRUCTIONS. PATIENT AND DAUGHTER UNDERSTAND AND AGREE WITH PLAN OF CARE AND D/C INSTRUCTIONS, INCLUDING FOLLOW UP WITH PCP & MEDICATIONS. ALL QUESTIONS AND CONCERN ADDRESSED. REPORT GIVEN TO NURSE AT [facility]. PATIENT ON CONTACT PRECAUTION UPON TRANSPORT. IV TO KATHERINE REMOVED, CATH INTACT. RIGHT IJ CDI, AND PATENT. NO S/S OF INFECTION. KAMARA CATH REMOVED, RESISTANCE WAS FELT TOWARD THE TIP OF THE CATH, SUPERIOR COURT CLERK YUNG AWARE. HIGINIO BARRAGAN WAS ABLE TO REMOVE KAMARA CATH, 400 ML URINE OUTPUT NOTED. PATIENT TAKEN DOWN VIA GURNEY BY [facility].
--- NOTE | 2019-05-07 07:23 | NUR ---
PHYSICAL THERAPY DAILY NOTES CO-SIGN All documentation done by the Barrel Handler for 05/07/19 has been reviewed. I agree with the documentation. Reviewed/Co-Signed by: Shaista Saha PT Documentation Done by:ELSVIA VÁSQUEZ PTA FOR 05/06/19
== END 2019-05-06 16:25 | DRG 853 ==
LOC: ED 08:44 → IC 10:53 → DU 10:53 → IC 14:53 → DU 04-28 15:04
PROVIDERS: Emergency Medicine; Family Medicine; Specialist; ADMIT Internal Medicine
PROC: 0JBR0ZZ Excision of Left Foot Subcutaneous Tissue and Fascia, Open Approach (ICD-10-PCS; principal; 2019-04-27)
PROC: 0Y6J0Z2 Detachment at Left Lower Leg, Mid, Open Approach (ICD-10-PCS; 2019-05-01)
DX: A41.9 Sepsis, unspecified organism (principal); N17.0 Acute kidney failure with tubular necrosis; M72.6 Necrotizing fasciitis; A48.0 Gas gangrene; A04.72 Enterocolitis due to Clostridium difficile, not specified as recurrent; Z68.1 Body mass index [BMI] 19.9 or less, adult; E11.52 Type 2 diabetes mellitus with diabetic peripheral angiopathy with gangrene; N17.9 Acute kidney failure, unspecified; E87.1 Hypo-osmolality and hyponatremia; M86.9 Osteomyelitis, unspecified; I12.9 Hypertensive chronic kidney disease with stage 1 through stage 4 chronic kidney disease, or unspecified chronic kidney disease; E11.22 Type 2 diabetes mellitus with diabetic chronic kidney disease; E11.65 Type 2 diabetes mellitus with hyperglycemia; E11.69 Type 2 diabetes mellitus with other specified complication; N18.3 Chronic kidney disease, stage 3 (moderate); E11.21 Type 2 diabetes mellitus with diabetic nephropathy; E11.43 Type 2 diabetes mellitus with diabetic autonomic (poly)neuropathy; K31.84 Gastroparesis; R74.0 Nonspecific elevation of levels of transaminase and lactic acid dehydrogenase [LDH]; D53.9 Nutritional anemia, unspecified; Z79.4 Long term (current) use of insulin; Z68.22 Body mass index [BMI] 22.0-22.9, adult; Z87.891 Personal history of nicotine dependence; Z79.84 Long term (current) use of oral hypoglycemic drugs; Z91.14 Patient's other noncompliance with medication regimen
CPT/HCPCS: 82962; 97110-GP; G0378; J2020; J2250; J2270; J2543; J2704; J3010; J3370; J3475; J3480; J3490; J7030; J7040; J7050; J7060; J8597; P9016; Q0092

== ENCOUNTER 2019-06-06 23:56 | Emergency (ER) | payer OTHER, MEDICAID ==
[~2019-06-06 23:56] MED LIST changes: +AMERINET CHOICE1 PD3 IV; +VANCOCIN125 MG PO
[2019-06-07 05:40] VITALS: BP 142/58
== END 2019-06-07 05:41 | disposition home or self-care (01) ==
LOC: ED 23:56
DX: N39.0 Urinary tract infection, site not specified (principal); R33.9 Retention of urine, unspecified; E11.9 Type 2 diabetes mellitus without complications; E78.00 Pure hypercholesterolemia, unspecified; I10 Essential (primary) hypertension
CPT/HCPCS: J0696